=== PATIENT | female | born 1960 | race Caucasian/White ===

== ENCOUNTER → 2018-04-18 | Outpatient (REF) | payer OTHER | LOC: M LAB REF 19:56 | DX: R30.0 Dysuria (principal) | CPT/HCPCS: 87186 ==

== ENCOUNTER → 2019-12-04 | Outpatient (CLI) | payer OTHER ==
[~2019-12-04] MED LIST: /CIPR75TA OR; ACET65TA OR; BACITAB OR; FLAG500T OR; LIS; LISINOPRIL/HCTZ PO
== END ==
LOC: M LABSMTC 13:56
PROVIDERS: ATTEND Family Medicine
DX: Z11.59 Encounter for screening for other viral diseases (principal)
CPT/HCPCS: C9803; U0003

== ENCOUNTER → 2020-07-17 | Outpatient (CLI) | payer SELFPAY | LOC: M LABSMTC 09:06 | PROVIDERS: ATTEND Pediatrics | DX: Z20.822 Contact with and (suspected) exposure to COVID-19 (principal) ==

== ENCOUNTER → 2021-05-15 | Outpatient (CLI) | payer MEDICAID, OTHER ==
--- NOTE | 2021-05-15 11:40 | REP ---
INDICATION: SMOKER. COMPARISON: None. TECHNIQUE: Axial noncontrast images from the thoracic inlet to the upper abdomen using low-dose lung screening technique (LDCT). As per the protocol only lung window images were sent to the read station for interpretation FINDINGS: There is evidence of mild biapical pleuroparenchymal scarring. In the right lung apex posteriorly there is a 4 mm size nodule. In the right mid lung zone there are 2 intra fissural nodules 1 measures 6 mm in the other measures 4 mm. In the inferior right middle lobe anteriorly there is a pleural based 4 mm size nodule. In the bhnau basal segment of the left lower lobe there is a 4 mm size nodule. Grossly, the mediastinum and pulmonary mindi are within normal limits. Grossly, the imaged upper abdomen and imaged osseous structures are within normal limits. IMPRESSION: Multiple lung nodules as described above. The nodule seen in the bhaun basal segment of the left lower lobe was seen on prior CT lung base images 11/24/2010 and is unchanged. The small pleural base nodule seen in the inferior right middle lobe was also seen on those lung base images and it is unchanged. The other nodules, as described above, were not imaged on those lung base images. Due to the size of the largest nodule lung rads category 3 will be assigned as per the revised Fleischner society criteria and a six-month follow-up CT examination of the chest is recommended <Electronically signed by Roberto Saucedo > 05/15/21 1969
== END ==
LOC: M RAD 10:54
PROVIDERS: ATTEND Family Medicine
DX: Z12.2 Encounter for screening for malignant neoplasm of respiratory organs (principal); Z87.891 Personal history of nicotine dependence; R91.8 Other nonspecific abnormal finding of lung field

== ENCOUNTER → 2021-11-27 | Outpatient (CLI) | payer OTHER | LOC: M PLAIMG 13:30 | PROVIDERS: ATTEND Family Medicine | DX: R91.8 Other nonspecific abnormal finding of lung field (principal); I70.0 Atherosclerosis of aorta ==

== ENCOUNTER → 2022-08-01 | Outpatient (CLI) | payer OTHER ==
[~2022-08-01] MED LIST changes: +ASPI81TA26 PO; +BIOT1CAP2 PO; +LISI10TA24 PO; +MAGN100T PO; +POTA99CA2 PO; +VITMTA PO
== END ==
LOC: M LABSMTC 09:11
PROVIDERS: ATTEND Anesthesiology
DX: Z01.812 Encounter for preprocedural laboratory examination (principal); Z20.822 Contact with and (suspected) exposure to COVID-19

== ENCOUNTER 2022-08-06 07:27 | Day surgery (SDC) | payer OTHER ==
[~2022-08-06] VITALS: Ht 154.9 cm; Wt 62.6 kg
[~2022-08-06 07:27] MED LIST changes: +NS 1,000 ML IV ONE
[2022-08-06] MEDS ORDERED: LIDOCAINE 2% 100MG/5ML SDV (FOR ANES.) As Ordered ONE (08:48)
[2022-08-06] MEDS ORDERED: propofoL 200 MG/20 ML VIAL As Ordered ONE (08:48)
[2022-08-06 09:30] VITALS: BP 137/77
== END 2022-08-06 09:34 | disposition home or self-care (01) ==
LOC: M OPP 07:27
PROVIDERS: ATTEND Internal Medicine Gastroenterology
DX: Z12.11 Encounter for screening for malignant neoplasm of colon (principal); K57.30 Diverticulosis of large intestine without perforation or abscess without bleeding; K64.8 Other hemorrhoids; Z79.82 Long term (current) use of aspirin; Z79.899 Other long term (current) drug therapy; I10 Essential (primary) hypertension; Z87.891 Personal history of nicotine dependence; Z80.1 Family history of malignant neoplasm of trachea, bronchus and lung; Z90.49 Acquired absence of other specified parts of digestive tract

== ENCOUNTER → 2024-04-27 | Outpatient (CLI) | payer OTHER ==
[~2024-04-27] MED LIST changes: -NS 1,000 ML IV ONE
== END ==
LOC: M RAD 11:00
PROVIDERS: ATTEND Family Medicine
DX: Z12.2 Encounter for screening for malignant neoplasm of respiratory organs (principal); F17.211 Nicotine dependence, cigarettes, in remission; R91.8 Other nonspecific abnormal finding of lung field; J43.2 Centrilobular emphysema; Z90.49 Acquired absence of other specified parts of digestive tract